=== PATIENT | female | born 1945 | race Caucasian/White ===

== ENCOUNTER → 2023-05-02 07:17 | Outpatient (REF) | payer MEDICARE, OTHER, SELFPAY ==
[2023-05-02 08:25] LABS: % Basophils 1.1 % (0-2); % Eosinophils 1.7 % (0-6); % Immature Granulocytes 0.2 % (0-0.5); % Lymphocytes 35.8 % (20.5-51.1); % Monocytes 8.1 % (1.7-9.3); % Neutrophils 53.1 % (42.2-75.2); Absolute Basophils 0.1 10^3/uL (0-0.2); Absolute Eosinophils 0.1 10^3/uL (0-0.7); Absolute Lymphocytes 2.3 10^3/uL (1.2-3.4); Absolute Monocytes 0.5 10^3/uL (0.1-0.6); Absolute Neutrophils 3.4 10^3/uL (1.4-6.5); Hematocrit 43.8 % (37.0-47.0); Mean Corpuscular Hgb 29.5 pg (27.0-31.0); Mean Corpuscular Volume 92.2 fL (81.0-99.0); Mean Platelet Volume 9.2 fL (7.4-10.4); Nucleated Red Blood Cells % 0 %; Platelet Count 246 10^3/uL (130-400); Red Blood Cell Count 4.75 10^6/uL (4.20-5.40); Red Cell Dist. Width 13.4 % (11.5-14.5); White Blood Cell Count 6.4 10^3/uL (4.8-10.8)
[2023-05-02 09:14] LABS: ALT (SGPT) 19 U/L (0-35); AST (SGOT) 25 U/L (14-36); Albumin 4.2 g/dl (3.5-5.0); Alkaline Phosphatase 91 U/L (38-126); Blood Urea Nitrogen 16 mg/dl (7-17); Calcium 9.6 mg/dl (8.4-10.2); Carbon Dioxide 29 mmol/L (22-30); Chloride 104 mmol/L (98-107); Glucose 114 mg/dl (70-99); HDL Cholesterol 75 mg/dl; LDL Cholesterol, Calculated 90 mg/dl; Potassium 4.3 mmol/L (3.5-5.1); Sodium 141 mmol/L (135-145); Total Bilirubin 0.5 mg/dl (0.2-1.3); Total Cholesterol 193 mg/dl (50-199); Triglyceride 140 mg/dl (10-149); Very Low Density Lipoprotein 28 mg/dl (0-30); eGFR > 60.00
[2023-05-02 09:37] LABS: TSH Reflex To Free T4 2.97 uIU/ml (0.47-4.68)
== END ==
LOC: REG 07:17
PROVIDERS: ATTENDING PHYSICIAN Family Medicine
DX: R00.2 Palpitations (principal); R06.02 Shortness of breath; R53.83 Other fatigue; I48.0 Paroxysmal atrial fibrillation; E78.00 Pure hypercholesterolemia, unspecified
CPT/HCPCS: 36415; 80053; 80061; 84443; 85025

== ENCOUNTER → 2024-08-09 06:54 | Outpatient (REF) | payer MEDICARE, SELFPAY ==
[2024-08-09 08:46] LABS: % Eosinophils 2.4 % (0-6); % Immature Granulocytes 0.1 % (0-0.5); % Lymphocytes 43.2 % (20.5-51.1); % Neutrophils 44.3 % (42.2-75.2); Absolute Basophils 0.1 10^3/uL (0-0.2); Absolute Eosinophils 0.2 10^3/uL (0-0.7); Absolute Monocytes 0.6 10^3/uL (0.1-0.6); Absolute Neutrophils 3.1 10^3/uL (1.4-6.5); Hematocrit 44.1 % (37.0-47.0); Hemoglobin 14.1 g/dL (12.0-16.0); Mean Corpuscular Hgb 29.6 pg (27.0-31.0); Mean Corpuscular Volume 92.6 fL (81.0-99.0); Mean Platelet Volume 9.3 fL (7.4-10.4); Nucleated Red Blood Cells % 0 %; Platelet Count 259 10^3/uL (130-400); Red Blood Cell Count 4.76 10^6/uL (4.20-5.40)
[2024-08-09 09:10] LABS: ALT (SGPT) 22 U/L (0-35); AST (SGOT) 30 U/L (14-36); Albumin 4.3 g/dl (3.5-5.0); Alkaline Phosphatase 82 U/L (38-126); Blood Urea Nitrogen 18 mg/dl (7-17); Calcium 9.5 mg/dl (8.4-10.2); Carbon Dioxide 29 mmol/L (22-30); Chloride 108 mmol/L (98-107); Glucose 104 mg/dl (70-99); HDL Cholesterol 69 mg/dl; LDL Cholesterol, Calculated 138 mg/dl; Potassium 4.3 mmol/L (3.5-5.1); Sodium 143 mmol/L (135-145); Total Bilirubin 0.5 mg/dl (0.2-1.3); Total Cholesterol 241 mg/dl (50-199); Total Protein 7.1 g/dl (6.3-8.2); Triglyceride 172 mg/dl (10-149); Very Low Density Lipoprotein 34 mg/dl (0-30); eGFR > 60.00
[2024-08-09 09:38] LABS: TSH Reflex To Free T4 6.16 uIU/ml (0.47-4.68)
[2024-08-09 10:08] LABS: Free T4 1.27 ng/dl (0.78-2.19)
[2024-08-09 10:27] LABS: Glycohemoglobin (HgbA1c) 5.9 % (4.0-5.6)
== END ==
LOC: REG 06:54
PROVIDERS: ATTENDING PHYSICIAN Family Medicine
DX: E78.00 Pure hypercholesterolemia, unspecified (principal); I48.0 Paroxysmal atrial fibrillation; R73.03 Prediabetes; R73.9 Hyperglycemia, unspecified; R53.83 Other fatigue
CPT/HCPCS: 36415; 80053; 80061; 83036; 84439; 84443; 85025